=== PATIENT | male | born 1985 | race Caucasian/White ===

== ENCOUNTER 2023-05-06 14:51 | Emergency (ER) | payer OTHER, SELFPAY ==
[2023-05-06 14:58] VITALS: BP 141/93; PULSE 98; RESP 20; TEMP 36.6; O2SAT 99
--- NOTE | 2023-05-06 15:10 | ED.URI ---
HPI - URI/Sore Throat General Chief Complaint: Upper Respiratory Infection Stated Complaint: nausea/aches/cough Time Seen by Provider: 05/06/23 15:11 Source: patient, RN notes reviewed and old records reviewed Mode of arrival: ambulatory Limitations: no limitations History of Present Illness HPI Narrative: 37 year old male accompanied by significant other with complaints of cough for about a month, nausea and vomiting for the past few days, with some body aches and headaches and sore throat.. Patient reports that he had low grade fevers last night and has not taken any medications for his symptoms. Patient reports that he does smoke cigarettes daily and for the past 2 years he has smoked up to 2 packs daily, started smoking when age 21. MD elicited complaint: cough, sore throat and other (nausea and vomiting) Pertinent past history: other (tobacco abuse) Onset (ago): day(s) (cough stated for a month, other symptoms few days,) Pain scale (0-10): 5 Able to tolerate fluids by mouth: Yes Treatments prior to arrival: none Related Data Allergies Allergy/AdvReac Type Severity Reaction Status Date / Time No Known Allergies Allergy Verified 05/06/23 15:18 Review of Systems Review of Systems: CONSTITUTIONAL: Reports malaise, chills, sweats, or fever. EYES: Denies visual changes, redness, or discharge. ENT: Reports rhinorrhea, congestion,sinus pain, no otalgia and positive for sore throat. CARDIOVASCULAR: Denies chest pain, palpitations, or edema. RESPIRATORY: Reports cough.? Denies dyspnea. GASTROINTESTINAL: Denies abdominal pain,reports episodes of nausea, vomiting,no diarrhea SKIN: Denies rash or itching. MUSCULOSKELETAL: Denies myalgia. NEUROLOGIC: Positive for headache. All systems reviewed & are unremarkable except as noted in HPI and below PMFSH Surgical History Surgical History (Updated 05/06/23 @ 15:55 by Toshia Santana NP) Hx of appendectomy Social History Social History (Updated 05/06/23 @ 15:26 by Toshia Santana NP) Smoking packs per day: 1 Smoking cigarettes per day: 20.0 Years smoked: 16 Smoking pack-years: 16.00 Smoking status: Current every day smoker Tobacco type: cigarettes Comments At time of signature, agree with nursing past medical, surgical, social and family history. There is no relevant family history pertinent to the presenting complaint Exam Narrative: GENERAL: Well-appearing, well-nourished, and in no acute distress. HEAD: Normocephalic EYES: PERRLA, conjunctivae clear ENT: Nares clear, turbinates edematous and erythematous, clear discharge. Mucous membranes moist. TM pearly bernard with dull light reflex bilaterally; no tragal tenderness. Oropharynx erythematous without lesions. Tonsils not enlarged and without exudate, no drooling, no hoarseness, no trismus, uvula midline. NECK: Supple. No lymphadenopathy CHEST: Clear to auscultation, breath sounds equal. No wheezing, rhonchi, rales, or stridor. No respiratory distress, speaks in full sentences.cough noted, DANTE 99% on room air HEART: Regular rate and rhythm. No murmur heard. SKIN: Warm, dry, no rash. NEURO: Alert and oriented x3. PSYCH: Normal mood and affect Course Course Emergency Course: Patient is aware of diagnosis, understands and agrees to treatment plan.? Anticipatory guidance given.? Patient agrees to follow-up as directed and is aware of reasons to seek care at the emergency department. Portions of this record may have been created with voice recognition software Level of Care: Express Care Visit Vital Signs Vital signs: Vital Signs Temperature 36.6 C 05/06/23 14:58 Pulse Rate 98 05/06/23 14:58 Respiratory Rate 05/06/23 14:58 Blood Pressure 141/93 H 05/06/23 14:58 Pulse Oximetry 99 05/06/23 14:58 Oxygen Delivery Room Air 05/06/23 14:58 Temperature 36.6 C 05/06/23 14:58 Pulse Rate 98 05/06/23 14:58 Respiratory Rate 05/06/23 14
== END 2023-05-06 15:45 | disposition home or self-care (01) ==
PROVIDERS: Emergency Provider Registered Nurse
DX: J02.0 Streptococcal pharyngitis (principal); F17.210 Nicotine dependence, cigarettes, uncomplicated; Z20.822 Contact with and (suspected) exposure to COVID-19
CPT/HCPCS: 87426; 87804; 87880; 99213; G0463